=== PATIENT | male | born 1995 | race Caucasian/White ===

== ENCOUNTER 2018-12-31 15:09 | Emergency (ER) | payer SELFPAY ==
[~2018-12-31] VITALS: Ht 170.2 cm; Wt 79.4 kg
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
--- NOTE | 2018-12-31 15:25 | NUR ---
SEEN AND EXAMINED BY DARSHANA YA
--- NOTE | 2018-12-31 15:35 | NUR ---
LABS DRAWNED AND SENT TO LAB. AWAITING RESULTS.
[2018-12-31 15:59] LABS: BASOPHILS % (AUTO) 0.1 % (0.0-2.0); EOSINOPHILS % (AUTO) 0.1 % (0.0-6.0); HEMATOCRIT 45 % (39-51); HEMOGLOBIN 15.6 g/dL (13.5-17.5); LYMPHOCYTES # (AUTO) 0.4 /CMM (0.8-4.8); MEAN CORPUSCULAR HGB CONC 35 g/dl (31.0-36.0); MEAN CORPUSCULAR VOLUME 83 fL (80-96); MONOCYTES # (AUTO) 1.2 /CMM (0.1-1.30); MONOCYTES % (AUTO) 13.3 % (2.0-12.0); NEUTROPHILS # (AUTO) 7.5 /CMM (1.8-8.9); NEUTROPHILS % (AUTO) 82.5 % (43.0-81.0); PLATELET COUNT (AUTO) 203 /CMM (150-450); RED BLOOD CELL COUNT(AUTO) 5.35 MIL/uL (4.5-6.0); WHITE BLOOD COUNT (AUTO) 9.1 K/uL (4.3-11.0)
[2018-12-31] MEDS ORDERED: IV NS 0.9% 1,000 ML BAG IV ONE (16:00)
[2018-12-31] MEDS ORDERED: KETOROLAC TROMETHAMINE INJ 30 MG/ML VIAL IV ONE (16:00)
[2018-12-31] MEDS ORDERED: LORAZEPAM INJ 2 MG/ML VIAL IV ONE (16:00)
[2018-12-31] MEDS ORDERED: ONDANSETRON HCL/PF 4 MG/2 ML VIAL IVP ONE (16:00)
[2018-12-31] MEDS ORDERED: ONDANSETRON HCL/PF 4 MG/2 ML VIAL ONE (16:13)
[2018-12-31] MEDS ORDERED: KETOROLAC TROMETHAMINE INJ 30 MG/ML VIAL ONE (16:13)
[2018-12-31] MEDS ORDERED: LORAZEPAM INJ 2 MG/ML VIAL ONE (16:14)
[2018-12-31 16:15] LABS: CALCIUM, SERUM 9.3 mg/dL (8.5-10.1); CREATININE 0.8 mg/dL (0.6-1.3); POTASSIUM 3.1 mmol/L (3.5-5.1)
[2018-12-31 16:19] LABS: ALBUMIN 4.5 g/dL (3.4-5.0); BILIRUBIN,DIRECT 0.2 mg/dL (0.0-0.2); BILIRUBIN,TOTAL 0.9 mg/dL (0.2-1.0); TOTAL PROTEIN, SERUM 7.9 g/dL (6.4-8.2)
[2018-12-31] MEDS ORDERED: POTASSIUM CHLORIDE 20 MEQ TAB.PRT.SR PO ONE ×2 (16:30→16:36)
[2018-12-31 17:13] VITALS: BP 121/77
--- NOTE | 2018-12-31 17:13 | NUR ---
IV removed. Catheter intact and site benign. Pressure and 4x4 applied to site. No bleeding noted. Patient discharged to home in stable condition. Written and verbal after care instructions given. Patient verbalizes understanding of instruction.
== END 2018-12-31 17:15 | disposition home or self-care (01) ==
LOC: ER 15:09
DX: K29.70 Gastritis, unspecified, without bleeding (principal)
CPT/HCPCS: 36415; 80048-TC; 80076-TC; 83690-TC; 85025-TC; J1885; J2060; J2405; J7030

== ENCOUNTER 2019-01-01 18:47 | Emergency (ER) | payer BC ==
[~2019-01-01] VITALS: Ht 170.2 cm; Wt 79.4 kg
[2019-01-01] MEDS ORDERED: ONDANSETRON HCL/PF 4 MG/2 ML VIAL ONE (19:26)
[2019-01-01] MEDS ORDERED: KETOROLAC TROMETHAMINE INJ 30 MG/ML VIAL ONE (19:26)
[2019-01-01] MEDS ORDERED: LORAZEPAM INJ 2 MG/ML VIAL ONE (19:27)
--- NOTE | 2019-01-01 19:29 | NUR ---
PT BIB FAMILY FOR ANXIETY AND TINGLING SENSATION TO UPPER EXTREMITIES WITH OCCASIONAL CRAMPING SINCE 1430. PT AOX4. FAMILY AT BEDSIDE. WILL CONTINUE TO MONITOR.
[2019-01-01] MEDS ORDERED: KETOROLAC TROMETHAMINE INJ 30 MG/ML VIAL IV ONE (19:30)
[2019-01-01] MEDS ORDERED: IV NS 0.9% 1,000 ML BAG IV ONE (19:30)
[2019-01-01] MEDS ORDERED: ONDANSETRON HCL/PF 4 MG/2 ML VIAL IVP ONE (19:30)
[2019-01-01] MEDS ORDERED: LORAZEPAM INJ 2 MG/ML VIAL IV ONE (19:30)
--- NOTE | 2019-01-01 19:30 | NUR ---
BLOOD DRAWN AND GIVEN TO LAB
--- NOTE | 2019-01-01 19:35 | NUR ---
TECH AT BEDSIDE FOR EKG
[2019-01-01 19:39] LABS: BASOPHILS % (AUTO) 0.4 % (0.0-2.0); EOSINOPHILS % (AUTO) 0.1 % (0.0-6.0); HEMATOCRIT 45 % (39-51); HEMOGLOBIN 15.4 g/dL (13.5-17.5); LYMPHOCYTES # (AUTO) 0.9 /CMM (0.8-4.8); LYMPHOCYTES % (AUTO) 15.6 % (20.0-44.0); MEAN CORPUSCULAR HGB CONC 34 g/dl (31.0-36.0); MEAN CORPUSCULAR VOLUME 84 fL (80-96); MONOCYTES # (AUTO) 1.3 /CMM (0.1-1.30); MONOCYTES % (AUTO) 21.7 % (2.0-12.0); NEUTROPHILS # (AUTO) 3.7 /CMM (1.8-8.9); NEUTROPHILS % (AUTO) 62.2 % (43.0-81.0); PLATELET COUNT (AUTO) 190 /CMM (150-450); RED BLOOD CELL COUNT(AUTO) 5.36 MIL/uL (4.5-6.0); WHITE BLOOD COUNT (AUTO) 5.9 K/uL (4.3-11.0)
[2019-01-01 19:50] LABS: CALCIUM, SERUM 9.7 mg/dL (8.5-10.1); CARBON DIOXIDE 23 mmol/L (21-32); CHLORIDE 101 mmol/L (98-107); CREATININE 0.9 mg/dL (0.6-1.3); GLUCOSE 85 mg/dL (74-106); POTASSIUM 3.8 mmol/L (3.5-5.1); SODIUM SERUM 138 mmol/L (136-145); UREA NITROGEN, BLOOD 11 mg/dL (7-18)
[2019-01-01 20:02] LABS: ALANINE AMINOTRANSFERASE 76 U/L (12-78); ALBUMIN 4.4 g/dL (3.4-5.0); ALKALINE PHOSPHATASE 64 U/L (46-116); ASPARTATE AMINOTRANSFERASE 48 U/L (15-37); BILIRUBIN,DIRECT 0.2 mg/dL (0.0-0.2); BILIRUBIN,TOTAL 0.8 mg/dL (0.2-1.0); LIPASE 132 U/L (73-393)
--- NOTE | 2019-01-01 20:47 | NUR ---
NS START TIME: 1946 ENDTIME: 2046
--- NOTE | 2019-01-01 20:56 | NUR ---
PT TAKEN TO CT VIA [facility]
--- NOTE | 2019-01-01 22:06 | NUR ---
Patient ambulatory w/ steady gait, resp even & unlabored w/ nad noted. Family at bedside to take pt home. IV removed. Catheter intact and site benign. Pressure and 4x4 applied to site. No bleeding noted.Patient discharged to home in stable condition. Written and verbal after care instructions given. Patient verbalizes understanding of instruction.
[2019-01-01 22:22] VITALS: BP 118/70
== END 2019-01-01 22:06 | disposition home or self-care (01) ==
LOC: ER 18:47
DX: A08.4 Viral intestinal infection, unspecified (principal); F41.9 Anxiety disorder, unspecified; R11.2 Nausea with vomiting, unspecified
CPT/HCPCS: 36415; 71045-TC; 80048-TC; 80076-TC; 83690-TC; 83735-TC; 84484-TC; 85025-TC; 85378-TC; J1885; J2060; J2405; J7030

== ENCOUNTER 2022-07-07 06:48 | Emergency (ER) | payer BC, OTHER ==
[~2022-07-07] VITALS: Ht 170.2 cm; Wt 74.8 kg
--- NOTE | 2022-07-07 07:00 | NUR ---
CM. RLQ ABD PAIN X 3 DAYS +N/+V DIFFICULT TO BREATH D/T PAIN. PT A/OX4. CONNECTED PT TO POX AND MONITOR. SAFETY MEASURES IN PLACE.
--- NOTE | 2022-07-07 07:20 | NUR ---
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
--- NOTE | 2022-07-07 07:25 | NUR ---
RECEVED PT FROM [facility] RN PT AWAKE AND ALERT C/O ABDOMINALE PAIN WITH N/V ABDOMIN SOFT NONE TENDER TO TOUCH
[2022-07-07] MEDS ORDERED: ONDANSETRON HCL/PF 4 MG/2 ML VIAL IVP ONE (07:30)
[2022-07-07] MEDS ORDERED: IV NS 0.9% 1,000 ML BAG IV ONE (07:30)
[2022-07-07] MEDS ORDERED: KETOROLAC TROMETHAMINE INJ 30 MG/ML VIAL IV ONE (07:30)
[2022-07-07] MEDS ORDERED: ONDANSETRON HCL/PF 4 MG/2 ML VIAL ONE (07:35)
[2022-07-07] MEDS ORDERED: KETOROLAC TROMETHAMINE 15 MG/ML VIAL ONE (07:35)
--- NOTE | 2022-07-07 07:50 | NUR ---
TO CT SCAN OF ABDOMIN VIA AMISH
[2022-07-07 07:51] LABS: BASOPHILS % (AUTO) 0.5 % (0.0-2.0); EOSINOPHILS % (AUTO) 0.8 % (0.0-6.0); HEMATOCRIT 42 % (39-51); HEMOGLOBIN 14.3 g/dL (13.5-17.5); MEAN CORPUSCULAR HGB CONC 34 g/dl (31.0-36.0); MEAN CORPUSCULAR VOLUME 85 fL (80-96); MONOCYTES % (AUTO) 5.8 % (2.0-12.0); NEUTROPHILS # (AUTO) 12.8 K/uL (1.8-8.9); NEUTROPHILS % (AUTO) 77.9 % (43.0-81.0); PLATELET COUNT (AUTO) 202 K/uL (150-450); RED BLOOD CELL COUNT(AUTO) 4.96 MIL/uL (4.5-6.0); WHITE BLOOD COUNT (AUTO) 16.5 K/uL (4.3-11.0)
[2022-07-07 07:52] LABS: BASOPHILS # (AUTO) 0.1 K/uL (0.0-0.2); LYMPHOCYTES # (AUTO) 2.5 K/uL (0.8-4.8)
--- NOTE | 2022-07-07 08:05 | NUR ---
BACK FROM CT SCAN STILL WITH ABDOMINA. PAIN BLOOD DROW BY LAB TACH
[2022-07-07 08:39] LABS: ALBUMIN 4.4 g/dL (3.4-5.0); BILIRUBIN,DIRECT 0.1 mg/dL (0.0-0.2); BILIRUBIN,TOTAL 0.6 mg/dL (0.2-1.0); CALCIUM, SERUM 8.8 mg/dL (8.5-10.1); CREATININE 1.1 mg/dL (0.6-1.3); POTASSIUM 3.4 mmol/L (3.5-5.1); TOTAL PROTEIN, SERUM 7.3 g/dL (6.4-8.2)
[2022-07-07] MEDS ORDERED: METOCLOPRAMIDE HCL 10 MG/2 ML VIAL IV ONE (09:00)
[2022-07-07] MEDS ORDERED: METOCLOPRAMIDE HCL 10 MG/2 ML VIAL ONE (09:09)
--- NOTE | 2022-07-07 09:17 | NUR ---
SENIA MOTHER [phone]
--- NOTE | 2022-07-07 09:19 | NUR ---
REGLAN 10 MG IV ADMINISTERED ORDERED FOR NAUSEA
--- NOTE | 2022-07-07 09:41 | NUR ---
RESTING AT THIS TIME
[2022-07-07] MEDS ORDERED: HYDR-4209 PO (10:01)
[2022-07-07] MEDS ORDERED: ONDA4TAB11 PO (10:01)
[2022-07-07] MEDS ORDERED: CIPR500T5 PO (10:01)
[2022-07-07] MEDS ORDERED: IBUP-1957 PO (10:01)
--- NOTE | 2022-07-07 10:11 | NUR ---
Updated by ER provider Patient discharged to home in stable condition. Written and verbal after care instructions given. Patient verbalizes understanding of instruction. NO vomiting noted
[2022-07-07 10:12] VITALS: BP 118/70
== END 2022-07-07 10:13 | disposition home or self-care (01) ==
LOC: ER 06:53
DX: R10.31 Right lower quadrant pain (principal); K62.89 Other specified diseases of anus and rectum
CPT/HCPCS: 99285; 74176; 96374; 96375; 96361; 85025; 80048; 83690; 80076; 36415; J2765; J2405; J7030; J1885

== ENCOUNTER 2022-09-26 10:02 | Emergency (ER) | payer OTHER ==
[~2022-09-26] VITALS: Ht 170.2 cm; Wt 77.1 kg
[~2022-09-26 10:02] MED LIST: CIPR500T5 PO; HYDR-4209 PO; IBUP-1957 PO; ONDA4TAB11 PO
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
--- NOTE | 2022-09-26 12:15 | NUR ---
FOLLOWED-UP RESULT OF XRAY W/ RADIOLOGY
[2022-09-26] MEDS ORDERED: CYCL5TAB PO (12:36)
[2022-09-26] MEDS ORDERED: KETO10TA2 PO (12:36)
--- NOTE | 2022-09-26 12:41 | NUR ---
Patient discharged to home in stable condition. Written and verbal after care instructions given. Patient verbalizes understanding of instruction.
[2022-09-26 12:43] VITALS: BP 138/70
== END 2022-09-26 12:43 | disposition home or self-care (01) ==
LOC: ER 10:05
DX: M25.511 Pain in right shoulder (principal); M79.602 Pain in left arm; Z79.899 Other long term (current) drug therapy
CPT/HCPCS: 73000-TC